=== PATIENT | female | born 1945 | race Caucasian/White ===

== ENCOUNTER 2025-03-29 13:46 | Emergency (ER) | payer MEDICARE, BC ==
[~2025-03-29] VITALS: Ht 172.7 cm; Wt 70.5 kg
[~2025-03-29 13:46] MED LIST: ACIT25CA2 PO; AMLO2.5T5 PO; AMOX1TAB15 PO; APIX5TAB3 PO; BACL10TA2 PO; CARI-515; CEFD300C17 PO; CEPH-585 PO; CIPR-452 PO; CLOB15OI21; COLL30OI; DOXE25CA3 PO; DOXY-460 PO; DULO60CA65 PO; FURO20TA4 PO; GABA300T28; GENT30OI2; HYDR-3686 PO; HYDR453.2; LEVO100T PO; MUPI22OI30; ONDA-104 PO; ONDA-243; OXYC10TA47 PO; OXYC5TAB2 PO; RIZA5TAB83; SERT-433 PO; SIMV-42 PO; TOP100T PO; ZOLP-679
[2025-03-29 13:54] VITALS: BP 134/48; PULSE 54; RESP 16; TEMP 97.8; O2SAT 99
[2025-03-29 15:06] LABS: MEAN PLATELET VOLUME 8.1 FL (7.4-10.4); RED CELL DISTRIBUTION WIDTH 16.8 % (11.5-14.5)
[2025-03-29 15:21] LABS: CREATININE 1.13 MG/DL (0.40-0.90); TOTAL CARBON DIOXIDE 24.7 MMOL/L (24-32); eCRCL 42 ML/MIN; eGFR 47 ML/MIN
--- NOTE | 2025-03-29 15:22 | Physician Documentation ---
History of Present Illness ~ Chief Complaint: Leg Pain Stated Complaint: L LEG PAIN Time Seen by MD: 14:49 HPI This is a 79-year-old female that presented presents to the emergency department for evaluation of left lower extremity wounds. 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 Tenderness reports that the wounds have been controlled and healing up to this point but as of yesterday they noticed that the wounds had a smell and appear to be necrotic looking. Patient was provided her oncologist phone number we will try to get in touch with her to develop a plan of care. Tetanus witin 5 years: No (allergy) Medication Reconciliation Allergies: Coded Allergies: Sulfa (Sulfonamide Antibiotics) (Verified Allergy, Unknown, 03/29/25) peanut (Unverified Allergy, Unknown, 03/31/25) pt reports peanut allergy prochlorperazine (Verified Allergy, Unknown, 03/29/25) Scheduled Apixaban (Eliquis), 1 TAB PO BID, (Reported) Baclofen (Baclofen), 1 TAB PO TID, (Reported) Ciprofloxacin HCl (Cipro), 1 TAB PO Q12H Doxycycline Hyclate (Doxycycline Hyclate), 100 MG PO BID Folic Acid* (Folic Acid*), 1 TAB PO DAILY, (Reported) Hydroxyzine Hcl* (Atarax*), 1 TAB PO QID, (Reported) Sertraline HCl (Sertraline HCl), 1 TAB PO DAILY, (Reported) Topiramate (Topamax), 1 TAB PO BID, (Reported) Scheduled PRN Famotidine (Pepcid AC), 1 TAB PO QDAY PRN PRN for heartburn, (Reported) Hydrocodone Bit/Acetaminophen 5/325 MG ([place] 5/325 MG), 1 TAB PO Q4H PRN for moderate or severe pain 4-10, (Reported) Lorazepam (Ativan), 1 TAB PO Q12H PRN PRN for anxiety, (Reported) Ondansetron HCl (Ondansetron HCl), 1 TAB PO Q8H PRN for nausea/vomiting, (Reported) Promethazine HCl (Promethazine HCl), 1 TAB PO Q6H PRN PRN for nausea/vomiting, (Reported) Sennosides (Senna), 2 TAB PO DAILY PRN for constipation, (Reported) Miscellaneous Medications Levothyroxine Sodium (Synthroid), 75 MCG PO, (Reported) Rizatriptan Benzoate (Rizatriptan), (Reported) Simvastatin* (Zocor*), 1 TAB PO, (Reported) Zolpidem Tartrate (Ambien), (Reported) Discontinued Medications Hydrocodone Bit/Acetaminophen (Hydrocodone-Apap 10-325 Tablet), 1 TAB PO QID PRN PRN for pain Discontinued Reason: Auto Discontinued Review of Systems ROS As stated above in the HPI, otherwise all systems are reviewed and negative. Physical Exam Vital Signs: Temperature: 97.8, Source: Temporal, Heart Rate: 54, Respiratory Rate: 16, BP: 134/48, Pulse Oximetry: 99, Weight: 70.450 Oxygen Flow Rate: 0 Physical Exam VITALS: Reviewed and as above. GENERAL: Alert, no apparent distress. HEENT: Normocephalic, atraumatic, PERRL, EOMI, dry mucosa, no erythema RESPIRATORY: Lungs clear, normal breath sounds, no respiratory distress. CHEST: No accessory muscle use, no retractions CV: Regular rate, rhythm, no edema, no murmur, No: JVD GI: Soft, non-tender, bowels sounds present, no rebound, guarding, or rigidity BACK: No CVA tenderness, or swelling MUSCULOSKELETAL No deformities, edema to the lower left extremity SKIN: Warm and dry, no rash, wounds, edema and drainage to the lower right extremity NEURO: Oriented x4, No motor or sensory deficit PSYCH: Normal mood and affect, no agitation Progress Results/Orders Results/Orders Orders - PAVITHRA JOHNSON Cult (Aer) Routine C&S+Gram St (03/29/25 14:43) Completed Orders - PAVITHRA JOHNSON Cbc/Diff (03/29/25 14:43) CMP (03/29/25 14:43) Laboratory Tests Test 03/29/25 14:58 White Blood Count 4.9 Red Blood Count 3.92 L Hemoglobin 12.2 Hematocrit 37.9 Mean Corpuscular Volume 96.6 Mean Corpuscular Hemoglobin 31.1 H Mean Corpuscular Hemoglobin Concent 32.2 L Red Cell Distribution Width 16.8 H Platelet Count 205 Mean Platelet Volume 8.1 Neutrophils (%) (Auto) 69.3 Lymphocytes (%) (Auto) 19.8 L Monocytes (%) (Auto) 8.3 Eosinophils (%) (Auto) 2.1 Basophils (%) (Auto) 0.5 Neutrophils # (Auto) 3.4 Lymphocytes # (Auto) 1.0 L Monocytes # (Auto) 0.4 Eosinophils # (Auto) 0.1 Basophils # (Auto) 0.0 CBC Comment Sodium Level 137 Potassium Level 3.7 Chloride Level 107 Carbon Dioxide Level 24.7 Anion Gap 5 L Blood Urea Nitrogen 13 Creatinine 1.13 H Estimated GFR/1.73 m2 47 BUN/Creatinine Ratio 11.5 Glucose Level 106 H Calcium Level 8.6 Total Bilirubin 0.3 Aspartate Amino Transf (AST/SGOT) 24 Alanine Aminotransferase (ALT/SGPT) 68 Alkaline Phosphatase 127 H Total Protein 6.8 Albumin 3.4 Globulin 3.4 Albumin/Globulin Ratio 1.0 L Chemistry Comments Medical Decision Making Findings 1500: Made a phone call to the patient's oncologist Dr. Arshad weighing unsuccessful left a message. 1600: Discussed this patient with Dr. Andujar concern for progression of infection and need for admission. Plan to admit patient for wound management in the presence of existing T-Cell lymphoma. Patient eloped prior to admission to the hospitalist service. Tried to call phone number on chart multiple times. Departure Disposition: LEFT AWOL/ELOPED Impression: Primary Impression: Acquired lymphedema of lower extremity Additional Impressions: Cellulitis Open wound Discharge Instructions: Wound Care, Adult Additional Instructions: Plan to admit patient for wound management in the presence of existing T-Cell lymphoma. Patient eloped prior to admission to the hospitalist service. Tried to call phone number on chart multiple times. Referrals: NO PRIMARY CARE PROVIDER (PCP) Education Educated: Patient Educated regarding: diagnosis, need for follow up Signature Scribe Signature: A Attestation: Scribed for Pavithra Johnson by PER Rojas . 04/12/25 08:53 PAVITHRA JOHNSON Mar 29, 2025 15:22
[2025-03-30] MEDS ORDERED: FOLI0.4T6 PO (16:15)
[2025-03-30] MEDS ORDERED: LEVO100T PO (16:15)
[2025-03-30] MEDS ORDERED: SENN-360 PO (16:15)
[2025-03-30] MEDS ORDERED: PROM25TA14 PO (16:18)
[2025-03-30] MEDS ORDERED: HYDR-3965 PO (16:18)
[2025-03-30] MEDS ORDERED: LORA-268 PO (16:18)
[2025-03-30] MEDS ORDERED: FAMO20TA47 PO (16:18)
[2025-04-03] MEDS ORDERED: HYDR-3973 PO (11:28)
[2025-04-03] MEDS ORDERED: CIPR-259 PO (11:33)
[2025-04-03] MEDS ORDERED: DOXY-243 PO (11:33)
== END 2025-03-29 17:03 | disposition left against medical advice (07) ==
LOC: ER 13:47
DX: L03.116 Cellulitis of left lower limb (principal); Z88.2 Allergy status to sulfonamides; Z91.010 Allergy to peanuts
CPT/HCPCS: 36415; 80053; 85025; 99283